=== PATIENT | female | born 1965 | race Caucasian/White ===

== ENCOUNTER 2021-12-17 07:33 | Day surgery (SDC) | payer BC ==
[~2021-12-17] VITALS: Ht 170.2 cm; Wt 92.8 kg
[~2021-12-17 07:33] MED LIST: HYDROCHLOROTHIA25 MG PO; LISINOPRIL20 MG PO; NORG-EE 0.18-01 EACH PO
--- NOTE | 2021-12-17 09:26 | NUR ---
12/17/21 0926 Nellie Payne 0928 PATIENT ARRIVES TO PACU AWAKE OFF/ON, BUT DROWSY. ASKING/ANSWERING QUESTION APPROPRIATELY. RESP EVEN AND UNLABORED, NC AT 3 LITERS, TURNED OFF. PATIENT DENIES PAIN OR NAUSEA.
--- NOTE | 2021-12-18 06:17 | OR ---
[facility] [address], [place] [address] Signed DATE OF OPERATION: 12/17/2021 SURGEON: Kita Boone MD PREOPERATIVE DIAGNOSES: 1. Mother with colon cancer around age 46 or 48. 2. Sister with probable history of colonic polyps. 3. Personal history of colonic polyps at age 45 in 2010. 4. Additional colonic polyps in 2018 at age 51. 5. Minimal diverticulosis. POSTOPERATIVE DIAGNOSIS: Minimal sigmoid diverticulosis. PROCEDURE: Colonoscopy without biopsy. ESTIMATED BLOOD LOSS: None. INDICATIONS: Gladys is a 56-year-old female asked to see me for followup colonoscopy. We know her mother had colon cancer around age 46 or 48. 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 She is fairly certain her sister had colonic polyps. I helped Gladys back in 2010 at age of 45 for her initial colonoscopy. She had multiple polyps removed. They were all under 4 mm. Some were adenomas and others for hyperplastic. We asked her to follow up in 5 years. She returned in 2018 at the age of 51. She had polyps between 3 and 8 mm in diameter. Two were adenomatous and the others were hyperplastic polyps. She was just beginning to have some diverticulosis. She required 10 mg of Versed and 200 mcg of fentanyl. She had no recall of that procedure. We asked her to follow up in 5 years. She returned to the office with respect to the above. She currently has no lower GI complaints. I gave her a pamphlet on colonoscopy. We reviewed the nature of the test. She understands there is risk including, but not limited to gas bloating, crampy abdominal pain, bleeding, perforation requiring surgery, and missed diagnosis. We also reviewed the fact that she took quite a bit of Versed and fentanyl last time. We decided to proceed with Versed and fentanyl once again. She had expressed understanding and wished to proceed. PROCEDURE NOTE: Gladys was taken into our endoscopy suite and placed in the left lateral decubitus Electronically Signed By: KITA BOONE MD 12/18/21 0617 PATIENT NAME: GLADYS RUTLEDGE OPERATIVE REPORT DATE OF : 67 REPORT #: [id number] PHYSICIAN: KITA BOONE MD PCP: JULIANN GALVAN MD REPORT IS CONFIDENTIAL AND NOT TO BE RELEASED WITHOUT AUTHORIZATION [facility] [address], [place] [address] Signed position. She was given IV sedation with 8 mg of Versed and 150 mcg of fentanyl. A digital rectal exam was performed and this was unremarkable. She had good sphincter tone. No external hemorrhoids. No masses. The adult colonoscope was introduced and advanced under direct visualization of the camera. She had a couple areas where she needed extra sedation and abdominal compression in order to advance the scope. She had a little bit of particulate liquid stool I could not quite suction out of the cecum itself. Otherwise, we could see the ileocecal valve quite well. The scope was then slowly withdrawn. There were no polyps on this occasion. She does have some diverticula in the sigmoid colon. They were minimal to moderate in size, few in number, and scattered about. The rectum was unremarkable. Upon retroflexion of the scope, there was no additional pathology noted above the anal canal. After this, the gas was suctioned out and the colonoscope removed. Gladys tolerated the procedure quite well. RECOMMENDATIONS: I will see Gladys back in 5 years for repeat colonoscopy. It appears that she does okay with her Versed and fentanyl. Kita Boone MD ALB/MODL /[id number] cc: MD Juliann Tobar MD Copies: KITA BOONE MD ~ Electronically Signed By: KITA BOONE MD 12/18/21 0617 PATIENT NAME: GLADYS RUTLEDGE NEMESIO OPERATIVE REPORT DATE OF : 67 REPORT #: [id number] PHYSICIAN: KITA BOONE MD PCP: JULIANN GALVAN MD REPORT IS CONFIDENTIAL AND NOT TO BE RELEASED WITHOUT AUTHORIZATION
== END 2021-12-17 09:55 | disposition home or self-care (01) ==
LOC: OPS 07:33 → DS 07:33 → OPS 09:55
PROVIDERS: ATTEND Colon & Rectal Surgery
PROC: 0DJD8ZZ Inspection of Lower Intestinal Tract, Via Natural or Artificial Opening Endoscopic (ICD-10-PCS; principal; 2021-12-17 09:00)
DX: K57.30 Diverticulosis of large intestine without perforation or abscess without bleeding (principal); I10 Essential (primary) hypertension; E66.9 Obesity, unspecified; Z80.0 Family history of malignant neoplasm of digestive organs; Z86.010 Personal history of colon polyps; Z83.71 Family history of colonic polyps; Z68.32 Body mass index [BMI] 32.0-32.9, adult
CPT/HCPCS: 99153; G0500; J2250; J3010; J7121